=== PATIENT | male | born 1985 | race African-American/Black ===

== ENCOUNTER 2025-01-19 04:21 | Emergency (ER) | payer OTHER, SELFPAY ==
[2025-01-19] VITALS (34 sets, daily range): BP systolic 125–204; BP diastolic 59–107; PULSE 93–116; RESP 23–51; TEMP 37.2–37.9; O2SAT 87–100; BMI 60.9
--- NOTE | 2025-01-19 04:26 | ED.SOB ---
HPI - SOB/Dyspnea <Joaquim Collins, DO - Last Filed: 01/19/25 17:42> General Chief Complaint: Shortness of Breath/Dyspnea Stated Complaint: sob Time Seen by Provider: 01/19/25 04:23 History of Present Illness HPI Narrative: 39-year-old morbidly obese male with a past medical history significant for sarcoidosis, pneumonia previously intubated at [facility] in August 2024 , asthma, htn, chronic hypoxemic respiratory failure, was at [facility] for rehab when he started to have shortness of breath, dyspnea on exertion, and dry cough this evening brought in via EMS this evening. He denies rash, fever, chills, bodyaches, sore throat, chest pain, back pain, abdomina pain, nausea, vomiting, diarrhea, constipation. Other than what is stated 14 point review of system is negative. Related Data Allergies Allergy/AdvReac Type Severity Reaction Status Date / Time No Known Drug Allergies Allergy Verified 01/19/25 04:41 Review of Systems <Joaquim Collins, DO - Last Filed: 01/19/25 17:42> Review of Systems ROS Unobtainable: All systems reviewed & are unremarkable except as noted in HPI and below Exam <Joaquim Collins, DO - Last Filed: 01/19/25 17:42> Narrative Exam Narrative: GENERAL: [39] year old patient appears stated age. Well-developed patient, in mild distress. HEAD: Atraumatic. Normocephalic. EYES: Pupils equal round and reactive. Extraocular motions intact. No scleral icterus. No injection or drainage. ENT: Nose without bleeding, purulent drainage. Throat without erythema, tonsillar hypertrophy or exudate. Airway patent. NECK: Trachea midline. Non tender CARDIOVASCULAR: Tachycardic Regular rate and rhythm without murmurs, gallops, or rubs. RESPIRATORY: Decreased breath sounds bilateral GASTROINTESTINAL: Abdomen soft, non-tender, nondistended. EXTREMITIES: No edema or joint tenderness. BACK: Nontender without deformity or crepitance. No flank tenderness. NEURO: AOx3. SKIN: No rash or erythema of visible areas Initial Vital Signs Initial Vital Signs: Vital Signs Temperature 100.3 F H 01/19/25 04:48 Pulse Rate 113 H 01/19/25 04:48 Respiratory Rate 36 H 01/19/25 04:48 Blood Pressure 125/59 L 01/19/25 04:48 Pulse Oximetry 87 L 01/19/25 04:48 Oxygen Delivery Method Nasal Cannula 01/19/25 04:48 Oxygen Flow Rate 3 01/19/25 04:48 <Camilla Blackmon, DO - Last Filed: 01/19/25 18:33> Initial Vital Signs Initial Vital Signs: Vital Signs Temperature 100.3 F H 01/19/25 04:48 Pulse Rate 113 H 01/19/25 04:48 Respiratory Rate 36 H 01/19/25 04:48 Blood Pressure 125/59 L 01/19/25 04:48 Pulse Oximetry 87 L 01/19/25 04:48 Oxygen Delivery Method Nasal Cannula 01/19/25 04:48 Oxygen Flow Rate 3 01/19/25 04:48 Course <Joaquim Collins, DO - Last Filed: 01/19/25 17:42> Orders Ordered: Discontinued Medications Acetaminophen (Acetaminophen 325 Mg Tablet) 975 mg PO NOW ONE Stop: 01/19/25 04:38 Last Admin: 01/19/25 06:26 Dose: 975 mg Documented By: AB Albuterol/Ipratropium (Albuterol/Ipratropium 3 Ml Ampul) 3 ml INH NOW ONE Stop: 01/19/25 04:29 Last Admin: 01/19/25 05:08 Dose: 3 ml Documented By: JACOBY Albuterol/Ipratropium (Albuterol/Ipratropium 3 Ml Ampul) 3 ml INH NOW ONE Stop: 01/19/25 04:36 Last Admin: 01/19/25 05:17 Dose: 3 ml Documented By: JACOBY Albuterol/Ipratropium (Albuterol/Ipratropium 3 Ml Ampul) 3 ml INH RTQ4HR PRN PRN Reason: Shortness Of Breath Ceftriaxone Sodium 2,000 mg/ (Sodium Chloride) 100 mls @ 200 mls/hr IV NOW ONE Stop: 01/19/25 04:36 Last Infusion: 01/19/25 08:25 Dose: Infused Documented By: Admin: 01/19/25 07:46 Dose: 200 mls/hr Documented By: JOSE Lactated Ringer's (Lactated Ringers) 1,000 mls @ 1,000 mls/hr IV BOLUS ONE Stop: 01/19/25 05:34 Last Infusion: 01/19/25 08:03 Dose: Infused Documented By: Admin: 01/19/25 06:28 Dose: 1,000 mls/hr Documented By: AB Azithromycin 500 mg/ Dextrose 250 mls @ 250 mls/hr IV NOW ONE Stop: 01/19/25 05:17 Last Infusion: 01/19/25 07:50 Dose: Infused Documented By: Admin: 01/19/25 06:47 Dose: 250 mls/hr Documented By: THUAN Sodium Chloride (Normal Saline 0.9%) 1,000 mls @ 150 mls/hr IV CONT SOUTH Last Admin: 01/19/25 08:03 Dose: 150 mls/hr Documented By: MARLENY Lidocaine HCl (Lidocaine Jelly 2% 5 Ml) 1 applic TOP NOW ONE Stop: 01/19/25 09:55 Last Admin: 01/19/25 09:56 Dose: Not Given Documented By: JAI Lidocaine HCl (Lidocaine 2% (Glydo) 6 Ml Gel) 6 ml TOP NOW ONE Stop: 01/19/25 09:56 Last Admin: 01/19/25 10:03 Dose: 6 ml Documented By: JAI Methylprednisolone (Methylprednisolone Succ 125 Mg/2 Ml Vial) 125 mg IV NOW ONE Stop: 01/19/25 04:30 Last Admin: 01/19/25 05:10 Dose: Not Given Documented By: THUAN Methylprednisolone (Methylprednisolone Succ 125 Mg/2 Ml Vial) 125 mg IM NOW ONE Stop: 01/19/25 05:08 Last Admin: 01/19/25 05:10 Dose: 125 mg Documented By: THUAN Ondansetron HCl (Ondansetron 4 Mg/2 Ml Inj) 4 mg IV NOW PRN PRN Reason: Nausea And Vomiting Ondansetron HCl (Ondansetron 4 Mg Odt) 4 mg PO NOW PRN PRN Reason: Nausea And Vomiting Vital Signs Vital signs: Vital Signs - 8 hr 01/19/25 11:00 01/19/25 11:01 01/19/25 11:01 Pulse Rate 108 H 108 H Respiratory Rate 28 H 34 H Blood Pressure 204/99 H Pulse Oximetry 97 99 01/19/25 11:04 01/19/25 11:04 01/19/25 11:10 Pulse Rate 102 H Respiratory Rate 32 H Blood Pressure 201/104 H 169/91 H Pulse Oximetry 97 01/19/25 11:10 01/19/25 11:20 01/19/25 11:20 Pulse Rate 97 H 105 H Respiratory Rate 26 H 24 Blood Pressure 138/89 Pulse Oximetry 97 99 01/19/25 11:30 01/19/25 11:30 01/19/25 11:40 Pulse Rate 98 H Respiratory Rate 28 H Blood Pressure 145/81 H 161/78 H Pulse Oximetry 98 01/19/25 11:40 01/19/25 11:51 01/19/25 11:51 Pulse Rate 95 H 99 H Respiratory Rate 25 H 25 H Blood Pressure 185/74 H Pulse Oximetry 98 98 01/19/25 12:00 01/19/25 12:00 01/19/25 12:11 Pulse Rate 97 H Respiratory Rate 25 H Blood Pressure 161/71 H 163/107 H Pulse Oximetry 98 01/19/25 12:11 01/19/25 12:20 01/19/25 12:20 Pulse Rate 103 H 93 H Respiratory Rate 25 H 23 Blood Pressure 153/100 H Pulse Oximetry 98 97 01/19/25 12:30 01/19/25 12:30 Pulse Rate 95 H Respiratory Rate 27 H Blood Pressure 159/80 H Pulse Oximetry 97 <Camilla Blackmon, - Last Filed: 01/19/25 18:33> Orders Ordered: Discontinued Medications Acetaminophen (Acetaminophen 325 Mg Tablet) 975 mg PO NOW ONE Stop: 01/19/25 04:38 Last Admin: 01/19/25 06:26 Dose: 975 mg Documented By: AB Albuterol/Ipratropium (Albuterol/Ipratropium 3 Ml Ampul) 3 ml INH NOW ONE Stop: 01/19/25 04:29 Last Admin: 01/19/25 05:08 Dose: 3 ml Documented By: BLF Albuterol/Ipratropium (Albuterol/Ipratropium 3 Ml Ampul) 3 ml INH NOW ONE Stop: 01/19/25 04:36 Last Admin: 01/19/25 05:17 Dose: 3 ml Documented By: BLF Albuterol/Ipratropium (Albuterol/Ipratropium 3 Ml Ampul) 3 ml INH RTQ4HR PRN PRN Reason: Shortness Of Breath Ceftriaxone Sodium 2,000 mg/ (Sodium Chloride) 100 mls @ 200 mls/hr IV NOW ONE Stop: 01/19/25 04:36 Last Infusion: 01/19/25 08:25 Dose: Infused Documented By: Admin: 01/19/25 07:46 Dose: 200 mls/hr Documented By: JOSE Lactated Ringer's (Lactated Ringers) 1,000 mls @ 1,000 mls/hr IV BOLUS ONE Stop: 01/19/25 05:34 Last Infusion: 01/19/25 08:03 Dose: Infused Documented By: SGDwain Admin: 01/19/25 06:28 Dose: 1,000 mls/hr Documented By: Azithromycin 500 mg/ Dextrose 250 mls @ 250 mls/hr IV NOW ONE Stop: 01/19/25 05:17 Last Infusion: 01/19/25 07:50 Dose: Infused Documented By: Admin: 01/19/25 06:47 Dose: 250 mls/hr Documented By: THUAN Sodium Chloride (Normal Saline 0.9%) 1,000 mls @ 150 mls/hr IV CONT SOUTH Last Admin: 01/19/25 08:03 Dose: 150 mls/hr Documented By: MARLENY Lidocaine HCl (Lidocaine Jelly 2% 5 Ml) 1 applic TOP NOW ONE Stop: 01/19/25 09:55 Last Admin: 01/19/25 09:56 Dose: Not Given Documented By: JAI Lidocaine HCl (Lidocaine 2% (Glydo) 6 Ml Gel) 6 ml TOP NOW ONE Stop: 01/19/25 09:56 Last Admin: 01/19/25 10:03 Dose: 6 ml Documented By: JAI Methylprednisolone (Methylprednisolone Succ 125 Mg/2 Ml Vial) 125 mg IV NOW ONE Stop: 01/19/25 04:30 Last Admin: 01/19/25 05:10 Dose: Not Given Documented By: THUAN Methylprednisolone (Methylprednisolone Succ 125 Mg/2 Ml Vial) 125 mg IM NOW ONE Stop: 01/19/25 05:08 Last Admin: 01/19/25 05:10 Dose: 125 mg Documented By: THUAN Ondansetron HCl (Ondansetron 4 Mg/2 Ml Inj) 4 mg IV NOW PRN PRN Reason: Nausea And Vomiting Ondansetron HCl (Ondansetron 4 Mg Odt) 4 mg PO NOW PRN PRN Reason: Nausea And Vomiting Vital Signs Vital signs: Vital Signs - 8 hr 01/19/25 11:00 01/19/25 11:01 01/19/25 11:01 Pulse Rate 108 H 108 H Respiratory Rate 28 H 34 H Blood Pressure 204/99 H Pulse Oximetry 97 99 01/19/25 11:04 01/19/25 11:04 01/19/25 11:10 Pulse Rate 102 H Respiratory Rate 32 H Blood Pressure 201/104 H 169/91 H Pulse Oximetry 97 01/19/25 11:10 01/19/25 11:20 01/19/25 11:20 Pulse Rate 97 H 105 H Respiratory Rate 26 H 24 Blood Pressure 138/89 Pulse Oximetry 97 99 01/19/25 11:30 01/19/25 11:30 01/19/25 11:40 Pulse Rate 98 H Respiratory Rate 28 H Blood Pressure 145/81 H 161/78 H Pulse Oximetry 98 01/19/25 11:40 01/19/25 11:51 01/19/25 11:51 Pulse Rate 95 H 99 H Respiratory Rate 25 H 25 H Blood Pressure 185/74 H Pulse Oximetry 98 98 01/19/25 12:00 01/19/25 12:00 01/19/25 12:11 Pulse Rate 97 H Respiratory Rate 25 H Blood Pressure 161/71 H 163/107 H Pulse Oximetry 98 01/19/25 12:11 01/19/25 12:20 01/19/25 12:20 Pulse Rate 103 H 93 H Respiratory Rate 25 H 23 Blood Pressure 153/100 H Pulse Oximetry 98 97 01/19/25 12:30 01/19/25 12:30 Pulse Rate 95 H Respiratory Rate 27 H Blood Pressure 159/80 H Pulse Oximetry 97 MDM - SOB/Dyspnea <Joaquim Collins, DO - Last Filed: 01/19/25 17:42> Lab Data 01/19/25 06:08 01/19/25 06:08 Labs: Lab Results 01/19/25 01/19/25 01/19/25 Range/Units 06:03 06:06 06:08 WBC 13.7 H (4.5-11.0) X10^3/uL RBC 4.26 L (4.5-5.9) X10^6/uL Hgb 11.2 L (13.5-17.5) g/dL Hct 33.5 L (41-53) % MCV 78.8 L (80-100) fL MCH 26.2 (26-34) PG MCHC 33.3 (30-36) % RDW 17.0 H (11.6-14.8) % Plt Count 274 (150-400) X10^3/uL Neut % (Auto) 82.9 H (50-75) % Lymph % (Auto) 8.2 L (25-40) % [place] % (Auto) 5.8 (3-14) % Eos % (Auto) 2.1 (2-4) % Baso % (Auto) 1.0 (0-2) % Neut # (Auto) 26362 H (7695-8667) /uL Lymph # (Auto) 1100 (3281-2194) /uL [place] # (Auto) 800 (0-900) /uL Eos # (Auto) 300 (0-450) /uL Baso # (Auto) 100 (0-100) /uL PT 14.4 H (9.4-12.5) SECONDS INR 1.3 (0.9-1.3) APTT 28 (25.1-36.5) SECONDS ABG Sample Site ABG pH (7.35-7.45) ABG pCO2 (35-45) mmHg ABG pO2 (80-100) mmHg ABG HCO3 (23-27) mmol/L ABG Total CO2 (23-27) mmol/L ABG O2 Saturation (95-100) % ABG Base Excess (-2-3) mmol/L Lv Test VBG pH (7.33-7.43) VBG pCO2 (45-50) mmHg VBG pO2 (35-45) mmHg VBG HCO3 (24-28) mmol/L VBG Total CO2 (24-29) mmol/L VBG O2 Saturation (70-75) % VBG Base Excess (0-4) mmol/L FiO2 % 70.0 % % Sodium 136 L (137-145) mmol/L Potassium 3.8 (3.4-5.1) mmol/L Chloride 98 (98-107) mmol/L Carbon Dioxide 30 (22-32) mmol/L BUN 13 (9-20) mg/dL Creatinine 1.04 (0.66-1.25) mg/dL Estimated GFR > 60 (>60) mL/min BUN/Creatinine Ratio 12.5 (6-22) Glucose 120 H (70-99) mg/dL Lactate 0.8 (0.7-2.1) mmol/L Calcium 8.9 (8.4-10.2) mg/dL Total Bilirubin 1.8 H (0.2-1.3) mg/dL AST 55 (17-59) IU/L ALT 88 H (<50) IU/L Alkaline Phosphatase 319 H (38-126) U/L Total Creatine Kinase 110 (55-170) U/L Troponin I < 0.012 (0.01-0.034) ng/mL NT-Pro-B Natriuret Pep 80 (<125) pg/mL Total Protein 7.1 (6.3-8.2) g/dL Albumin 3.8 (3.5-5.0) g/dL Globulin 3.3 (1.7-4.1) g/dL Albumin/Globulin Ratio 1.2 (1.0-2.8) Lipase 67 (23-300) U/L Procalcitonin 0.285 (<0.5) ng/mL SARS-CoV-2 (PCR) (Negative) Influenza A (RT-PCR) (NEGATIVE) Influenza B (RT-PCR) (NEGATIVE) RSV (PCR) (Negative) 01/19/25 01/19/25 01/19/25 Range/Units 06:13 06:36 09:29 WBC (4.5-11.0) X10^3/uL RBC (4.5-5.9) X10^6/uL Hgb (13.5-17.5) g/dL Hct (41-53) % MCV (80-100) fL MCH (26-34) PG MCHC (30-36) % RDW (11.6-14.8) % Plt Count (150-400) X10^3/uL Neut % (Auto) (50-75) % Lymph % (Auto) (25-40) % [place] % (Auto) (3-14) % Eos % (Auto) (2-4) % Baso % (Auto) (0-2) % Neut # (Auto) (0114-5175) /uL Lymph # (Auto) (6838-7704) /uL [place] # (Auto) (0-900) /uL Eos # (Auto) (0-450) /uL Baso # (Auto) (0-100) /uL PT (9.4-12.5) SECONDS INR (0.9-1.3) APTT (25.1-36.5) SECONDS ABG Sample Site Left radial ABG pH 7.33 L (7.35-7.45) ABG pCO2 66.8 H* (35-45) mmHg ABG pO2 128 H (80-100) mmHg ABG HCO3 35 H (23-27) mmol/L ABG Total CO2 34 H (23-27) mmol/L ABG O2 Saturation 99 (95-100) % ABG Base Excess 6.6 H (-2-3) mmol/L Lv Test Positive VBG pH 7.47 H (7.33-7.43) VBG pCO2 47.0 (45-50) mmHg VBG pO2 39 (35-45) mmHg VBG HCO3 34 H (24-28) mmol/L VBG Total CO2 32 H (24-29) mmol/L VBG O2 Saturation 76 H (70-75) % VBG Base Excess 9.1 H (0-4) mmol/L FiO2 % 70.0 % % Sodium (137-145) mmol/L Potassium (3.4-5.1) mmol/L Chloride (98-107) mmol/L Carbon Dioxide (22-32) mmol/L BUN (9-20) mg/dL Creatinine (0.66-1.25) mg/dL Estimated GFR (>60) mL/min BUN/Creatinine Ratio (6-22) Glucose (70-99) mg/dL Lactate (0.7-2.1) mmol/L Calcium (8.4-10.2) mg/dL Total Bilirubin (0.2-1.3) mg/dL AST (17-59) IU/L ALT (<50) IU/L Alkaline Phosphatase (38-126) U/L Total Creatine Kinase (55-170) U/L Troponin I (0.01-0.034) ng/mL NT-Pro-B Natriuret Pep (<125) pg/mL Total Protein (6.3-8.2) g/dL Albumin (3.5-5.0) g/dL Globulin (1.7-4.1) g/dL Albumin/Globulin Ratio (1.0-2.8) Lipase (23-300) U/L Procalcitonin (<0.5) ng/mL SARS-CoV-2 (PCR) Negative (Negative) Influenza A (RT-PCR) Flu a negative (NEGATIVE) Influenza B (RT-PCR) Flu b negative (NEGATIVE) RSV (PCR) Negative (Negative) Urine Dip Bedside Urine Glucose Negative Bedside Urine Bilirubin - Negative Bedside Urine Ketone - Negative Urine Specific [place] 1.015 Bedside Urine Occult Blood - Negative Bedside Urine pH 6.0 Bedside Urine Protein - Negative Bedside Urine Urobilinogen - Negative Bedside Urine Nitrite - Negative Bedside Urine Leukocytes - Negative Esterase Imaging Data Chest x-ray: Radiologist's Impression: Multifocal bilateral pulmonary infiltrates. Adequately positioned right central venous catheter. WBC 13.7 hemoglobin 11.2 INR 1.3 VBG 7.47 pCO2 47 CO2 39 bicarb 34 base excess 9.1 sodium 136 potassium 3.8 chloride 98 CO2 30 BUN 13 creatinine 1.04 glucose 120 lactic acid 0.8 T bili 1.8 ALT 80 alk-phos 319 procalcitonin 0.285 lipase 67 ECG Data Interpretation: Sinus Tach HR 115 ID 144 QRS [address]-t wave change No previous EKG to compare MDM Narrative Medical decision making narrative: All lab work, vital signs, nurse triage note, medication list, previous ER visits, and all imaging studies reviewed. Chest x-ray showed multifocal bilateral pulmonary infiltrates. Patient given fluids Tylenol, Rocephin and Zithromax. Labwork is pending. On heated highflow 70/50 <Camilla Blackmon, DO - Last Filed: 01/19/25 18:33> Lab Data Labs: Lab Results 01/19/25 01/19/25 01/19/25 Range/Units 06:03 06:06 06:08 WBC 13.7 H (4.5-11.0) X10^3/uL RBC 4.26 L (4.5-5.9) X10^6/uL Hgb 11.2 L (13.5-17.5) g/dL Hct 33.5 L (41-53) % MCV 78.8 L (80-100) fL MCH 26.2 (26-34) PG MCHC 33.3 (30-36) % RDW 17.0 H (11.6-14.8) % Plt Count 274 (150-400) X10^3/uL Neut % (Auto) 82.9 H (50-75) % Lymph % (Auto) 8.2 L (25-40) % [place] % (Auto) 5.8 (3-14) % Eos % (Auto) 2.1 (2-4) % Baso % (Auto) 1.0 (0-2) % Neut # (Auto) 84935 H (7262-0004) /uL Lymph # (Auto) 1100 (9955-1782) /uL [place] # (Auto) 800 (0-900) /uL Eos # (Auto) 300 (0-450) /uL Baso # (Auto) 100 (0-100) /uL PT 14.4 H (9.4-12.5) SECONDS INR 1.3 (0.9-1.3) APTT 28 (25.1-36.5) SECONDS ABG Sample Site ABG pH (7.35-7.45) ABG pCO2 (35-45) mmHg ABG pO2 (80-100) mmHg ABG HCO3 (23-27) mmol/L ABG Total CO2 (23-27) mmol/L ABG O2 Saturation (95-100) % ABG Base Excess (-2-3) mmol/L Lv Test VBG pH (7.33-7.43) VBG pCO2 (45-50) mmHg VBG pO2 (35-45) mmHg VBG HCO3 (24-28) mmol/L VBG Total CO2 (24-29) mmol/L VBG O2 Saturation (70-75) % VBG Base Excess (0-4) mmol/L FiO2 % 70.0 % % Sodium 136 L (137-145) mmol/L Potassium 3.8 (3.4-5.1) mmol/L Chloride 98 (98-107) mmol/L Carbon Dioxide 30 (22-32) mmol/L BUN 13 (9-20) mg/dL Creatinine 1.04 (0.66-1.25) mg/dL Estimated GFR > 60 (>60) mL/min BUN/Creatinine Ratio 12.5 (6-22) Glucose 120 H (70-99) mg/dL Lactate 0.8 (0.7-2.1) mmol/L Calcium 8.9 (8.4-10.2) mg/dL Total Bilirubin 1.8 H (0.2-1.3) mg/dL AST 55 (17-59) IU/L ALT 88 H (<50) IU/L Alkaline Phosphatase 319 H (38-126) U/L Total Creatine Kinase 110 (55-170) U/L Troponin I < 0.012 (0.01-0.034) ng/mL NT-Pro-B Natriuret Pep 80 (<125) pg/mL Total Protein 7.1 (6.3-8.2) g/dL Albumin 3.8 (3.5-5.0) g/dL Globulin 3.3 (1.7-4.1) g/dL Albumin/Globulin Ratio 1.2 (1.0-2.8) Lipase 67 (23-300) U/L Procalcitonin 0.285 (<0.5) ng/mL SARS-CoV-2 (PCR) (Negative) Influenza A (RT-PCR) (NEGATIVE) Influenza B (RT-PCR) (NEGATIVE) RSV (PCR) (Negative) 01/19/25 01/19/25 01/19/25 Range/Units 06:13 06:36 09:29 WBC (4.5-11.0) X10^3/uL RBC (4.5-5.9) X10^6/uL Hgb (13.5-17.5) g/dL Hct (41-53) % MCV (80-100) fL MCH (26-34) PG MCHC (30-36) % RDW (11.6-14.8) % Plt Count (150-400) X10^3/uL Neut % (Auto) (50-75) % Lymph % (Auto) (25-40) % [place] % (Auto) (3-14) % Eos % (Auto) (2-4) % Baso % (Auto) (0-2) % Neut # (Auto) (1384-7986) /uL Lymph # (Auto) (7104-0605) /uL [place] # (Auto) (0-900) /uL Eos # (Auto) (0-450) /uL Baso # (Auto) (0-100) /uL PT (9.4-12.5) SECONDS INR (0.9-1.3) APTT (25.1-36.5) SECONDS ABG Sample Site Left radial ABG pH 7.33 L (7.35-7.45) ABG pCO2 66.8 H* (35-45) mmHg ABG pO2 128 H (80-100) mmHg ABG HCO3 35 H (23-27) mmol/L ABG Total CO2 34 H (23-27) mmol/L ABG O2 Saturation 99 (95-100) % ABG Base Excess 6.6 H (-2-3) mmol/L Lv Test Positive VBG pH 7.47 H (7.33-7.43) VBG pCO2 47.0 (45-50) mmHg VBG pO2 39 (35-45) mmHg VBG HCO3 34 H (24-28) mmol/L VBG Total CO2 32 H (24-29) mmol/L VBG O2 Saturation 76 H (70-75) % VBG Base Excess 9.1 H (0-4) mmol/L FiO2 % 70.0 % % Sodium (137-145) mmol/L Potassium (3.4-5.1) mmol/L Chloride (98-107) mmol/L Carbon Dioxide (22-32) mmol/L BUN (9-20) mg/dL Creatinine (0.66-1.25) mg/dL Estimated GFR (>60) mL/min BUN/Creatinine Ratio (6-22) Glucose (70-99) mg/dL Lactate (0.7-2.1) mmol/L Calcium (8.4-10.2) mg/dL Total Bilirubin (0.2-1.3) mg/dL AST (17-59) IU/L ALT (<50) IU/L Alkaline Phosphatase (38-126) U/L Total Creatine Kinase (55-170) U/L Troponin I (0.01-0.034) ng/mL NT-Pro-B Natriuret Pep (<125) pg/mL Total Protein (6.3-8.2) g/dL Albumin (3.5-5.0) g/dL Globulin (1.7-4.1) g/dL Albumin/Globulin Ratio (1.0-2.8) Lipase (23-300) U/L Procalcitonin (<0.5) ng/mL SARS-CoV-2 (PCR) Negative (Negative) Influenza A (RT-PCR) Flu a negative (NEGATIVE) Influenza B (RT-PCR) Flu b negative (NEGATIVE) RSV (PCR) Negative (Negative) Urine Dip Bedside Urine Glucose Negative Bedside Urine Bilirubin - Negative Bedside Urine Ketone - Negative Urine Specific [place] 1.015 Bedside Urine Occult Blood - Negative Bedside Urine pH 6.0 Bedside Urine Protein - Negative Bedside Urine Urobilinogen - Negative Bedside Urine Nitrite - Negative Bedside Urine Leukocytes - Negative Esterase MDM Narrative Medical decision making narrative: All lab work, vital signs, nurse triage note, medication list, previous ER visits, and all imaging studies reviewed. Chest x-ray showed multifocal bilateral pulmonary infiltrates. Patient given fluids Tylenol, Rocephin and Zithromax. Labwork is pending. On heated highflow 70/50. 01/19/25 Dr. Blackmon: Patient signed out to myself by Dr. Collins. Patient is seen and evaluated by myself. Currently on high-flow 70/50 patient states his breathing feels improved at this time. He is still little tachypneic speaks in 4-5 words, decreased breath sounds bilaterally. Tachycardic. Notes he has had pneumonia in the past and has been at [facility] as he is requiring oxygen. Patient states has a history of sarcoid, asthma is on multiple inhalers. He states he has been intubated once before. CTA was ordered by overnight physician but to 2nd patient's weight and habitus was not able to be performed. Troponin and bnp were added on. Workup shows white count is 13 hemoglobin of 11 platelets are 274. Predominance of neutrophils CMP shows sodium 136 glucose of 120 BUN and creatinine are appropriate total bilirubin is 1.8 AST is 55 and ALT 88 alk-phos of 319 lipase is 67 procalcitonin is 0.285. Lactate is 0.8 COVID/influenza/RSV Patient has not VBG 7.47, pCO2 47, PO2 of 39 with a bicarb of 34. Patient has so to live placed by General surgery, x-ray shows multifocal pneumonia bilateral infiltrates adequately positioned rate central catheter. No pneumothorax, pleural effusion or congestive changes cardiac silhouette is normal. Patient received Solu-Medrol, fluids, acetaminophen, DuoNeb and azithromycin as well as Rocephin. Spoke with hospitalist Dr. Massey, due to patient's habitus patient will need multidisciplinary care that we do not have available at our facility plan for transfer. Spoke with Dr. Sanford, Ile[facility]ano @ [phone]. I reviewed patient they agree with some DVT prophylaxis with subQ heparin reviewed all findings. They do ask for circumference for the patient's before acceptance so if patient needed CT they can know if he would fit if his some conferences to large they would defer transfer. Patient circumference appropriate for facility and [facility]ude [facility]ano accepts with ALS transfer. Critical Care Time <Joaquim Collins, DO - Last Filed: 01/19/25 17:42> Critical Care Time Total Critical Care Time: 0 <Camilla Blackmon, DO - Last Filed: 01/19/25 18:33> Critical Care Time Critical Care Time: Yes Total Critical Care Time: 45 Attestation: The high probability of a clinically significant, sudden or life threatening deterioration of the cardiac/pulmonary system(s) required my full and direct attention, intervention and personal management. The aggregate critical care time was [--] minutes. This time is in addition to time spent performing reported procedures but includes the following: [x] Data Review and interpretation [x] Patient assessment and monitoring of vital signs [x] Documentation [x] Medication orders and management Discharge Plan Departure Patient Disposition: [facility] Clinical Impression: Multifocal pneumonia, Acute hypoxemic respiratory failure Stand Alone Forms: School Release Note
--- NOTE | 2025-01-19 04:30 | EKG_ITS ---
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
--- NOTE | 2025-01-19 04:35 | DI.RAD.S_ITS ---
PROCEDURE: XR CHEST 1V INDICATIONS: suspected sepsis TECHNIQUE: One view of the chest was acquired. COMPARISON: None. FINDINGS: Surgical changes and devices: None. Lungs and pleura: Patchy bilateral pulmonary infiltrates Mediastinum: Mediastinal contours appear normal. Heart size is normal. Bones and chest wall: No suspicious bony lesions. Overlying soft tissues appear unremarkable. IMPRESSION: Multifocal bilateral pneumonia Note: This final report is concordant with the preliminary after-hours interpretation provided by [facility] Approved by: Rios Guillen M.D. on 01/19/2025 at 8:37
[2025-01-19] MEDS: ALBUTEROL/IPRATROPIUM 3 ML AMPUL INH ×2 (05:08→05:17)
[2025-01-19] MEDS: methylPREDNISolone succ 125 MG/2 ML VIAL IM (05:10)
--- NOTE | 2025-01-19 05:50 | DI.RAD.S_ITS ---
PROCEDURE: XR CHEST 1V INDICATIONS: central line placement TECHNIQUE: One view of the chest was acquired. COMPARISON: [facility], CR, XR CHEST 1V, 01/19/2025, 4:40. FINDINGS: Surgical changes and devices: Right IJ central venous line tip at the IJ/SVC junction. Lungs and pleura: Patchy bilateral pulmonary infiltrates Mediastinum: Mediastinal contours appear normal. Heart size is enlarged but accentuated by low lung volumes. Bones and chest wall: No suspicious bony lesions. Overlying soft tissues appear unremarkable. IMPRESSION: Right IJ central venous line tip at the IJ/SVC junction. No pneumothorax Stable bilateral patchy pulmonary infiltrates Note: This final report is concordant with the preliminary after-hours interpretation provided by [facility], [facility] Approved by: Rios Guillen M.D. on 01/19/2025 at 8:53
--- NOTE | 2025-01-19 06:05 | PM.HP.IH.1 ---
History of Present Illness History of Present Illness Date Patient Seen: 01/19/25 Time Patient Seen: 05:30 Date of Onset of Symptoms: 01/18/25 Chief complaint: sob Narrative: Patient is a 39-year-old male presents to the emergency room with a stream shortness of breath dyspnea history of asthma and respiratory failure. Patient is morbidly obese. Patient's laboratory are pending he states he is not on any blood thinners. They need emergency IV access as he has none at this time. Allergies: NKDA Medications: Multiple inhalers, omeprazole, Zithromax, prednisone, nifedipine, Bactrim DS, Zofran, metoprolol, Lasix, sertraline, Tylenol, Past medical history: Anxiety, depression, asthma, history of multiple pneumonias with history of intubation, and fatty liver with chronically elevated LFTs, morbidly obese, sarcoidosis, history of previous respiratory failures with intubation, the patient denies any other heart lungs digestive musculoskeletal neurological seizure disorder psychiatric problems risks are Infectious diseases HIV or AIDS. Past surgical history: History of bronchoscopy and mediastinoscopy Social history: Unemployed, history of tobacco abuse less than 1/2 pack per day times 19 years. Two years ago, denies any alcohol in 1 year, ongoing marijuana Vitals: Temperature is 100.3? pulse is 106 respirations 28 BP is 125/59 SaO2 is 100% on 50 L. patient is 6 ft tall 462 lb Head is normocephalic eyes PERRLA EOMI is intact nares are clear oropharyngeal cavity moderate repair with some gum retraction oropharyngeal soft tissues are very dry heart regular rate and rhythm with tachycardia lungs diminished in the bases poor inspiratory and expiratory effort very tachypneic but unable to auscultate good breath sounds due to patient's size. Abdomen is morbidly obese good active bowel sounds no masses or peritoneal signs musculoskeletal patient is moving all extremities. Impression: Dyspnea shortness of breath with respiratory failure Super morbid obesity Lack of venous access Sarcoidosis Anxiety depression Plan: Discussed with patient the findings need for central venous access procedure risks and complications were fully explained including risk for cardiopulmonary depression infection bleeding possible pneumothorax he understands and consents we will place at bedside with ultrasound guidance all questions were answered to patient's satisfaction. Meds Home Medications and Allergies Allergies Allergy/AdvReac Type Severity Reaction Status Date / Time No Known Drug Allergies Allergy Verified 01/19/25 04:41 Exam Vital Signs (past 8 hours): - 01/19/25 04:48 01/19/25 05:10 01/19/25 05:18 Temperature 100.3 F H Pulse Rate 113 H 106 H 106 H Respiratory Rate 36 H 28 H 28 H Blood Pressure 125/59 L 125/59 L Pulse Oximetry 87 L 100 100 Oxygen Delivery Method Nasal Cannula High Flow Nasal Cannula High Flow Nasal Cannula Oxygen Flow Rate 3 50 50 Fraction of Inspired Oxygen 80 70 Fraction of Inspired Oxygen 70 SaO2/FiO2 Ratio 142 Oxygen Delivery Method High Flow Nasal Cannula Oxygen Flow Rate 50 Assessment & Plan Time-Based Coding :: [TOTAL MINUTES] spent with patient and on the chart (including review of chart, obtaining history, exam, reviewing outside data, placing orders, documenting exam and treatment plan, and counseling patient) on [DATE]. [employer] Switch[employer] Installer Document charge(s): Yes
--- NOTE | 2025-01-19 06:11 | PM.OP.1 ---
Operative Date/Time/Diagnoses Date of procedure: 01/19/25 Time of procedure: 05:30 Pre-op diagnosis: Dyspnea tachypnea short of breath with respiratory failure lack of venous access super morbid obesity Post-op diagnosis: same (Same) Procedure & Clinicians Procedure: Patient was seen in emergency consultation in the ER for central venous access patient has no venous access was this time discussed with patient the findings need for procedure risks and complications including cardiopulmonary depression infection bleeding possible pneumothorax patient understood and consented. Patient was placed in a slightly upright position due to his dyspnea ultrasound was performed shows a dilated lateral internal jugular vein but with respirations this collapse is almost completely.. The patient was prepped and draped in usual sterile fashion time-out was performed procedure patient's surgeon. The patient then had ultrasound probe was covered with a sterile probe cover an ultrasound of the internal jugular vein which was slightly laterally. Utilizing xylocaine 1% without epi anesthetize the skin needle was introduced into the vein under direct ultrasound visualization as withdrawn further injected with local. 14 gauge needle was then placed with syringe advanced into the vein good blood return was noted the syringe was removed care was taken to avoid any air emboli J-wire was advanced to the appropriate distance in the needle was removed no ectopy was noted. Patient then a small stab 1 placed at the wire insertion site 11. Knife blade dilators patient with a J-wire and rotating fashion this was then rule central venous triple-lumen catheter had been flushed with sterile normal saline was answered all of the gyri of the appropriate distance the J-wire was removed we hep-locked excellent blood return was noted on all port sites further flushed with sterile normal saline. This was then sutured in place with further xylocaine 1% without epi 2 0 silk sutures covered with a sterile Biopatch and Tegaderm. First and 2nd sponge instrument needle counts found to be correct patient tolerated procedure well without complication patient has returned back to nursing care stat portable chest x-ray was performed which shows excellent positioning of the superior vena cava no pneumothorax noted. May use central line. Same procedure(s) as scheduled: Yes (Right internal jugular central venous catheter with ultrasound guidance) Indications: Respiratory failure morbid obesity lack of venous access Surgeon: Valentín Lagos Assisted?: No Anesthesia Type: Local Operative Notes Findings: See dictated note Applied: other Estimated Blood Loss (mL): 0 Complications: none Post-operative Condition: stable Disposition: other Plan for aftercare: Ongoing workup in ER
[2025-01-19 06:17] LABS: Base Excess VBG 9.1 mmol/L (0-4); HCO3 VBG 34 mmol/L (24-28); Oxygen Saturation VBG 76 % (70-75); PCO2 VBG 47.0 mmHg (45-50); PO2 VBG 39 mmHg (35-45); Total CO2 VBG 32 mmol/L (24-29); pH VBG 7.47 (7.33-7.43)
[2025-01-19 06:25] LABS: Add Manual Diff / Slide Review NO; Hematocrit 33.5 % (41-53); Hemoglobin 11.2 g/dL (13.5-17.5); Lymphocytes Absolute Auto 1100 /uL (1100-4500); Mean Corpuscular HGB Conc 33.3 % (30-36); Mean Corpuscular Hemoglobin 26.2 PG (26-34); Mean Corpuscular Volume 78.8 fL (80-100); Platelet Count 274 X10^3/uL (150-400)
[2025-01-19] MEDS: ACETAMINOPHEN 325 MG TABLET 975 MG PO (06:26)
[2025-01-19] MEDS: LACTATED RINGERS 1,000 ML 1000 ML IV (06:28)
[2025-01-19 06:33] LABS: INR 1.3 (0.9-1.3); Prothrombin Time 14.4 SECONDS (9.4-12.5)
[2025-01-19 06:36] LABS: PTT Partial Thromboplastin Tim 28 SECONDS (25.1-36.5)
[2025-01-19 06:37] LABS: Alanine Aminotransferase 88 IU/L (<50); Albumin 3.8 g/dL (3.5-5.0); Albumin Globulin Ratio 1.2 (1.0-2.8); Alkaline Phosphatase 319 U/L (38-126); Blood Urea Nitrogen 13 mg/dL (9-20); Calcium 8.9 mg/dL (8.4-10.2); Carbon Dioxide 30 mmol/L (22-32); Chloride 98 mmol/L (98-107); Estimated Glomerular Filt Rate > 60 mL/min (>60); Globulin 3.3 g/dL (1.7-4.1); Glucose 120 mg/dL (70-99); HEMOLYSIS < 15 (0-50); Lactate (Lactic Acid) 0.8 mmol/L (0.7-2.1); Lipase 67 U/L (23-300); Potassium 3.8 mmol/L (3.4-5.1); Sodium 136 mmol/L (137-145); Total Protein 7.1 g/dL (6.3-8.2)
[2025-01-19] MEDS: AZITHROMYCIN 500 MG in DEXTROSE 5% IN WATER 250 ML 250 MG IV (06:47)
--- NOTE | 2025-01-19 06:53 | PC.NURSE ---
Right IJ placed for access by Dr. Lagos. This nurse assisted through process about 30 minutes. Provider secured with sutures. Pressure Injectable Three-Lumen CVC placed. 7 Fr 3 Lumen 20 cm catheter length 0.32 inch joseph spring-wire guide. Patient tolerated, blood obtained from line after provider completed. Using hub scrubs prior to use. 1st set of blood cultures and full rainbow obtained.
[2025-01-19 06:54] LABS: Procalcitonin 0.285 ng/mL (<0.5)
--- NOTE | 2025-01-19 06:56 | PC.NURSE ---
Waited at least 15 minutes between 1st set of blood cultures and 2nd using hub scrubs prior to blood draw. Waste of 10 ml blood prior to using blood for cultures.
--- NOTE | 2025-01-19 07:00 | PC.NURSE ---
Lift assist called to help with patient transfer from [facility] to CT scanner. CT scanner unable to operate after patient on bed. Provider notified. Returned to room #1
[2025-01-19 07:26] LABS: Influenza A - CEPHEID Flu A NEGATIVE (NEGATIVE); Influenza B - CEPHEID Flu B NEGATIVE (NEGATIVE)
[2025-01-19 07:27] LABS: COVID-19 CEPHEID 4-PLEX PCR Negative (Negative)
[2025-01-19 07:33] LABS: Creatine Kinase 110 U/L (55-170)
--- NOTE | 2025-01-19 07:37 | PC.NURSE ---
Patient given number to [place] to call himself for his personal belonging. Patient called his father on his own to give him an update.
[2025-01-19 07:46] LABS: NT-proBNP (BNP-Adult 18+) 80 pg/mL (<125); Troponin I < 0.012 ng/mL (0.01-0.034)
[2025-01-19] MEDS: cefTRIAXone 2,000 MG in SODIUM CHLORIDE 0.9% 100 ML 200 MG IV (07:46)
[2025-01-19] MEDS: SODIUM CHLORIDE 0.9% 1,000 ML 150 ML IV (08:03)
--- NOTE | 2025-01-19 09:22 | PC.NURSE ---
Patient diaphoretic. Temp 98.6 temporal scan. Patient in the room in and out of sleep. lung sounds clear on the right, diminished on the left. On heated high flow. Making urine frequently. States that he is feeling better.
--- NOTE | 2025-01-19 09:41 | PC.NURSE ---
patient measured using paper tape measure in two parts. part one: 39 from posterior deltoid to the opposite side marked position of tape on bed. part two: 27 from anterior surface of deltoid estimated at [place] of part one. Total circumference at the deltoids estimated to be 66.
[2025-01-19] MEDS: LIDOCAINE 2% (GLYDO) 6 ML GEL TOP (10:03)
[2025-01-19 10:39] LABS: Allen Test for ABG Passed? Positive; Blood Gas Collection Site Left Radial; HCO3 ABG 35 mmol/L (23-27); Oxygen Saturation ABG 99 % (95-100); PCO2 ABG 66.8 mmHg (35-45); PO2 ABG 128 mmHg (80-100); TCO2 ABG 34 mmol/L (23-27)
--- NOTE | 2025-01-19 12:28 | PC.NURSE ---
Pt wants to go to his SNF to gather his things so he can go down with his stuff. Mary from [facility] called back and stated that they are short staffed and they do not have anybody to gather his things. They stated that when the afternoon staff arrives maybe they can do it. The patient was updated. He stated that he wants to go get his stuff and it would only take a few minutes to get it. He was informed that he is not safe to leave the facility due to his condition. Provider updated. MD to speak with the patient.
== END 2025-01-19 13:25 | disposition short-term general hospital (02) ==
PROVIDERS: Family Medicine; Emergency Provider Emergency Medicine
DX: J18.8 Other pneumonia, unspecified organism (principal); J96.01 Acute respiratory failure with hypoxia; R00.0 Tachycardia, unspecified
CPT/HCPCS: 36415; 36600; 71045; 80053; 81003; 82550; 82805; 83605; 83690; 83880; 84145; 84484; 85025; 85610; 85730; 87040; 87637; 93005; 94640; 96365; 96367; 96372; 99285; 99291; J0696; J2919; J7030; J7050; J7060; J7120

== ENCOUNTER 2025-02-15 15:10 | Emergency (ER) | payer OTHER, SELFPAY ==
[2025-02-15] VITALS (26 sets, daily range): BP systolic 134–198; BP diastolic 66–99; PULSE 74–95; RESP 10–30; TEMP 36.8; O2SAT 94–99; BMI 68.5
--- NOTE | 2025-02-15 15:15 | DI.RAD.S_ITS ---
PROCEDURE: XR CHEST 1V INDICATIONS: dyspnea TECHNIQUE: One view of the chest was acquired. COMPARISON: [facility], CR, XR CHEST 1V, 01/19/2025, 5:43. FINDINGS: Surgical changes and devices: None. Lungs and pleura: Bilateral airspace, left greater than right opacities. No pleural effusion. No pneumothorax. Interstitial prominence in vascular crowding Mediastinum: Cardiomegaly. Bones and chest wall: No suspicious bony lesions. Overlying soft tissues appear unremarkable. IMPRESSION: Cardiomegaly with interstitial prominence is concerning for pulmonary edema. Airspace opacities may reflect infection in the correct clinical setting. Dictated by: Chacho Mcmullen M.D. on 02/15/2025 at 15:04 Approved by: Chacho Mcmullen M.D. on 02/15/2025 at 15:08
--- NOTE | 2025-02-15 15:18 | ED.CHESTPAIN ---
HPI - Chest Pain <Neal Kramer MD - Last Filed: 02/15/25 18:44> General Chief Complaint: Shortness of Breath/Dyspnea Stated Complaint: SOB Time Seen by Provider: 02/15/25 15:14 Source: patient Mode of arrival: EMS Limitations: no limitations History of Present Illness HPI narrative: 39-year-old male with morbid obesity coming from a local rehab center by ambulance for dyspnea. Reportedly has had progressive dyspnea over a week. Not having chest pain or fevers. Diuretic dose was doubled without resolution has bilateral lower extremity edema. On January 19 he was seen here with respiratory failure had multifocal pulmonary infiltrates required high-flow oxygen and a central line and was ultimately transferred to [facility] secondary to his obesity. D-dimer was elevated at that time however CT angiogram was not performed as the patient was too large for our table. Has a history of sarcoidosis, has required intubation in the past. It appears that his current dose of furosemide is 40 mg a day. He is also on prednisone 10 mg a day. Related Data Home Medications ?Medication ?Instructions ?Recorded ?Confirmed Dulera Inhalation Aerosol 2 inh inhalation BID 02/15/25 02/15/25 acetaminophen 325 mg capsule 650 mg PO Q4H PRN pain 02/15/25 02/15/25 azathioprine 50 mg tablet 50 mg PO DAILY 02/15/25 02/15/25 fluticasone 500 mcg-salmeterol 50 1 inh inhalation BID 02/15/25 02/15/25 mcg/dose blistr powdr for inhalation furosemide 40 mg tablet 40 mg PO DAILY 02/15/25 02/15/25 metoprolol tartrate 25 mg tablet 25 mg PO BID 02/15/25 02/15/25 nifedipine 30 mg tablet,extended 30 mg PO DAILY 02/15/25 02/15/25 release 24 hr pantoprazole 40 mg tablet,delayed 40 mg PO DAILY 02/15/25 02/15/25 release prednisone 10 mg tablet 20 mg PO DAILY 02/15/25 02/15/25 sertraline 100 mg tablet 200 mg PO DAILY 02/15/25 02/15/25 sulfamethoxazole 800 1 tab PO DAILY 02/15/25 02/15/25 mg-trimethoprim 160 mg tablet Allergies Allergy/AdvReac Type Severity Reaction Status Date / Time No Known Drug Allergies Allergy Verified 01/19/25 04:41 Patient History <Neal Kramer MD - Last Filed: 02/15/25 18:44> Medical History (Updated 02/15/25 @ 23:29 by Clifford Rodgers MD) Chronic kidney disease (CKD) stage G2/A2, mildly decreased glomerular filtration rate (GFR) between 60-89 mL/min/1.73 square meter and albuminuria creatinine ratio between 30-299 mg/g Asthma Morbid obesity with BMI of 60.0-69.9, adult Hypertension Sarcoidosis Social History Smoking Status: Never smoker Smoking Status: Never smoker Exam <Neal Kramer MD - Last Filed: 02/15/25 18:44> Narrative Exam Narrative: Morbidly obese and somnolent. No respiratory distress. On 4 L nasal cannula with good oxygen saturation Neck is supple I am unable to assess jugular venous distention. Patient refused to sit up for auscultation of the lungs posteriorly anteriorly lungs shows scattered rhonchi and scant wheezes Cardiac distant heart tones regular rhythm rate no murmur or gallop Abdomen is obese soft and nontender Pitting edema bilaterally. Sleeping, arouses to voice moving all 4 extremities spontaneously and equally Initial Vital Signs Initial Vital Signs: Vital Signs Temperature 98.2 F 02/15/25 15:11 Pulse Rate 91 H 02/15/25 15:11 Respiratory Rate 24 02/15/25 15:11 Blood Pressure 136/67 02/15/25 15:11 Pulse Oximetry 96 02/15/25 15:11 Oxygen Delivery Method Nasal Cannula 02/15/25 15:11 Oxygen Flow Rate 4 02/15/25 15:11 <Clifford Rodgers MD - Last Filed: 02/15/25 23:51> Initial Vital Signs Initial Vital Signs: Vital Signs Temperature 98.2 F 02/15/25 15:11 Pulse Rate 91 H 02/15/25 15:11 Respiratory Rate 24 02/15/25 15:11 Blood Pressure 136/67 02/15/25 15:11 Pulse Oximetry 96 02/15/25 15:11 Oxygen Delivery Method Nasal Cannula 02/15/25 15:11 Oxygen Flow Rate 4 02/15/25 15:11 Course <Neal Kramer MD - Last Filed: 02/15/25 18:44> Orders Ordered: ED Orders 02/15/25 15:14 BNP [NT-proBNP (BNP-Adult 18+)] Stat CBC Auto Diff [Complete Blood Count AUTO DIFF] Stat CMP [Comprehensive Metabolic Panel] Stat D Dimer Stat Procalcitonin Stat Trop I [Troponin I] Stat 02/15/25 15:15 CXR [XR chest 1V] Stat Venous Blood Gas STAT 02/15/25 15:16 EKG-12 Lead Stat 02/15/25 15:36 Venous Blood Gas Routine 02/15/25 17:37 Venous Blood Gas STAT 02/15/25 17:45 Venous Blood Gas Routine 02/15/25 18:00 High flow/High humidity nasal STAT 02/15/25 20:37 BiPAP Ventilatory Support RT PROTOCOL 02/15/25 21:15 Arterial Blood Gas STAT 02/15/25 22:58 Venous Blood Gas STAT 02/15/25 23:04 Venous Blood Gas Routine Discontinued Medications Furosemide (Furosemide 40 Mg/4 Ml Vial) 40 mg IV NOW ONE Stop: 02/15/25 20:38 Last Admin: 02/15/25 20:57 Dose: 40 mg Documented By: JENNIFER Furosemide (Furosemide 40 Mg/4 Ml Vial) 40 mg IV NOW ONE Stop: 02/15/25 20:43 Last Admin: 02/15/25 20:57 Dose: 40 mg Documented By: JENNIFER Vital Signs Vital signs: Vital Signs - 8 hr 02/15/25 16:00 02/15/25 16:00 02/15/25 16:30 Pulse Rate 86 Respiratory Rate 19 Blood Pressure 147/75 H 171/92 H Pulse Oximetry 96 Oxygen Delivery Method Oxygen Flow Rate Fraction of Inspired Oxygen 02/15/25 16:30 02/15/25 17:00 02/15/25 17:00 Pulse Rate 74 85 Respiratory Rate 20 19 Blood Pressure 198/90 H Pulse Oximetry 94 96 Oxygen Delivery Method Oxygen Flow Rate Fraction of Inspired Oxygen 02/15/25 17:30 02/15/25 17:31 02/15/25 17:31 Pulse Rate 87 85 Respiratory Rate 18 17 Blood Pressure 156/98 H Pulse Oximetry 98 97 Oxygen Delivery Method Oxygen Flow Rate Fraction of Inspired Oxygen 02/15/25 18:00 02/15/25 18:00 02/15/25 18:01 Pulse Rate 79 85 Respiratory Rate 23 22 Blood Pressure 166/99 H 156/98 H Pulse Oximetry 97 97 Oxygen Delivery Method Heated High Flow Oxygen Flow Rate 50 Fraction of Inspired Oxygen 35 02/15/25 18:30 02/15/25 18:30 02/15/25 19:00 Pulse Rate 83 Respiratory Rate 16 Blood Pressure 153/94 H 157/85 H Pulse Oximetry 96 Oxygen Delivery Method Oxygen Flow Rate Fraction of Inspired Oxygen 02/15/25 19:00 02/15/25 19:30 02/15/25 19:30 Pulse Rate 76 79 Respiratory Rate 21 23 Blood Pressure 138/66 Pulse Oximetry 97 97 Oxygen Delivery Method Oxygen Flow Rate Fraction of Inspired Oxygen 02/15/25 20:00 02/15/25 20:00 02/15/25 20:30 Pulse Rate 76 Respiratory Rate 23 Blood Pressure 143/72 H 153/84 H Pulse Oximetry 96 Oxygen Delivery Method Oxygen Flow Rate Fraction of Inspired Oxygen 02/15/25 20:30 02/15/25 20:49 02/15/25 21:00 Pulse Rate 80 83 Respiratory Rate 22 20 Blood Pressure 156/84 H Pulse Oximetry 98 98 Oxygen Delivery Method Oxygen Flow Rate Fraction of Inspired Oxygen 30 02/15/25 21:00 02/15/25 21:30 02/15/25 21:31 Pulse Rate 78 Respiratory Rate 22 Blood Pressure 161/82 H 142/92 H Pulse Oximetry 99 Oxygen Delivery Method Oxygen Flow Rate Fraction of Inspired Oxygen 02/15/25 21:31 02/15/25 22:00 02/15/25 22:00 Pulse Rate 79 82 Respiratory Rate 18 23 Blood Pressure 139/85 Pulse Oximetry 99 97 Oxygen Delivery Method Oxygen Flow Rate Fraction of Inspired Oxygen 02/15/25 22:29 02/15/25 22:30 Pulse Rate 88 Respiratory Rate 30 H Blood Pressure 150/95 H Pulse Oximetry 97 Oxygen Delivery Method BiPAP Oxygen Flow Rate Fraction of Inspired Oxygen <Clifford Rodgers MD - Last Filed: 02/15/25 23:51> Course Course Narrative: 20:30 Patient was signed out to me at the change of shift by Dr. Kramer with disposition pending. He was stable at that time and it was not until now that I have been able to investigate his case and interventions and make some decisions on his further management. This is a 39-year-old male patient with a history of severe morbid obesity with a BMI near 60. Sarcoidosis, hypertension, CHF, asthma and possible pulmonary hypertension. He comes in with worsening shortness of breath worsening over the last week with no cough, fever or chills. Denies chest pain. He had increased his furosemide but no improvement. Orders Ordered: ED Orders 02/15/25 15:14 BNP [NT-proBNP (BNP-Adult 18+)] Stat CBC Auto Diff [Complete Blood Count AUTO DIFF] Stat CMP [Comprehensive Metabolic Panel] Stat D Dimer Stat Procalcitonin Stat Trop I [Troponin I] Stat 02/15/25 15:15 CXR [XR chest 1V] Stat Venous Blood Gas STAT 02/15/25 15:16 EKG-12 Lead Stat 02/15/25 15:36 Venous Blood Gas Routine 02/15/25 17:37 Venous Blood Gas STAT 02/15/25 17:45 Venous Blood Gas Routine 02/15/25 18:00 High flow/High humidity nasal STAT 02/15/25 20:37 BiPAP Ventilatory Support RT PROTOCOL 02/15/25 21:15 Arterial Blood Gas STAT 02/15/25 22:58 Venous Blood Gas STAT 02/15/25 23:04 Venous Blood Gas Routine Discontinued Medications Furosemide (Furosemide 40 Mg/4 Ml Vial) 40 mg IV NOW ONE Stop: 02/15/25 20:38 Last Admin: 02/15/25 20:57 Dose: 40 mg Documented By: JENNIFER Furosemide (Furosemide 40 Mg/4 Ml Vial) 40 mg IV NOW ONE Stop: 02/15/25 20:43 Last Admin: 02/15/25 20:57 Dose: 40 mg Documented By: JENNIFER Vital Signs Vital signs: Vital Signs - 8 hr 02/15/25 16:00 02/15/25 16:00 02/15/25 16:30 Pulse Rate 86 Respiratory Rate 19 Blood Pressure 147/75 H 171/92 H Pulse Oximetry 96 Oxygen Delivery Method Oxygen Flow Rate Fraction of Inspired Oxygen 02/15/25 16:30 02/15/25 17:00 02/15/25 17:00 Pulse Rate 74 85 Respiratory Rate 20 19 Blood Pressure 198/90 H Pulse Oximetry 94 96 Oxygen Delivery Method Oxygen Flow Rate Fraction of Inspired Oxygen 02/15/25 17:30 02/15/25 17:31 02/15/25 17:31 Pulse Rate 87 85 Respiratory Rate 18 17 Blood Pressure 156/98 H Pulse Oximetry 98 97 Oxygen Delivery Method Oxygen Flow Rate Fraction of Inspired Oxygen 02/15/25 18:00 02/15/25 18:00 02/15/25 18:01 Pulse Rate 79 85 Respiratory Rate 23 22 Blood Pressure 166/99 H 156/98 H Pulse Oximetry 97 97 Oxygen Delivery Method Heated High Flow Oxygen Flow Rate 50 Fraction of Inspired Oxygen 35 02/15/25 18:30 02/15/25 18:30 02/15/25 19:00 Pulse Rate 83 Respiratory Rate 16 Blood Pressure 153/94 H 157/85 H Pulse Oximetry 96 Oxygen Delivery Method Oxygen Flow Rate Fraction of Inspired Oxygen 02/15/25 19:00 02/15/25 19:30 02/15/25 19:30 Pulse Rate 76 79 Respiratory Rate 21 23 Blood Pressure 138/66 Pulse Oximetry 97 97 Oxygen Delivery Method Oxygen Flow Rate Fraction of Inspired Oxygen 02/15/25 20:00 02/15/25 20:00 02/15/25 20:30 Pulse Rate 76 Respiratory Rate 23 Blood Pressure 143/72 H 153/84 H Pulse Oximetry 96 Oxygen Delivery Method Oxygen Flow Rate Fraction of Inspired Oxygen 02/15/25 20:30 02/15/25 20:49 02/15/25 21:00 Pulse Rate 80 83 Respiratory Rate 22 20 Blood Pressure 156/84 H Pulse Oximetry 98 98 Oxygen Delivery Method Oxygen Flow Rate Fraction of Inspired Oxygen 30 02/15/25 21:00 02/15/25 21:30 02/15/25 21:31 Pulse Rate 78 Respiratory Rate 22 Blood Pressure 161/82 H 142/92 H Pulse Oximetry 99 Oxygen Delivery Method Oxygen Flow Rate Fraction of Inspired Oxygen 02/15/25 21:31 02/15/25 22:00 02/15/25 22:00 Pulse Rate 79 82 Respiratory Rate 18 23 Blood Pressure 139/85 Pulse Oximetry 99 97 Oxygen Delivery Method Oxygen Flow Rate Fraction of Inspired Oxygen 02/15/25 22:29 02/15/25 22:30 Pulse Rate 88 Respiratory Rate 30 H Blood Pressure 150/95 H Pulse Oximetry 97 Oxygen Delivery Method BiPAP Oxygen Flow Rate Fraction of Inspired Oxygen MDM - Chest Pain <Neal Kramer MD - Last Filed: 02/15/25 18:44> Lab Data Lab results narrative: [place] [address], elevated D-dimer, venous blood gas shows normal pH with elevated CO2 suggesting compensation, proBNP and troponin are normal 02/15/25 15:14 02/15/25 15:14 Labs: Lab Results 11/15/25 11/15/25 11/15/25 Range/Units 15:14 15:36 17:45 WBC 12.0 H (4.5-11.0) X10^3/uL RBC 4.38 L (4.5-5.9) X10^6/uL Hgb 11.5 L (13.5-17.5) g/dL Hct 34.9 L (41-53) % MCV 79.6 L (80-100) fL MCH 26.1 (26-34) PG MCHC 32.8 (30-36) % RDW 17.5 H (11.6-14.8) % Plt Count 257 (150-400) X10^3/uL Neut % (Auto) 87.5 H (50-75) % Lymph % (Auto) 5.4 L (25-40) % [place] % (Auto) 5.2 (3-14) % Eos % (Auto) 1.3 L (2-4) % Baso % (Auto) 0.6 (0-2) % Neut # (Auto) 78158 H (4009-9531) /uL Lymph # (Auto) 600 L (2577-0331) /uL [place] # (Auto) 600 (0-900) /uL Eos # (Auto) 200 (0-450) /uL Baso # (Auto) 100 (0-100) /uL D-Dimer 1140 H (<500) ng/ml ABG Sample Site ABG pH (7.35-7.45) ABG pCO2 (35-45) mmHg ABG pO2 (80-100) mmHg ABG HCO3 (23-27) mmol/L ABG Total CO2 (23-27) mmol/L ABG O2 Saturation (95-100) % ABG Base Excess (-2-3) mmol/L Lv Test VBG pH 7.40 7.36 (7.33-7.43) VBG pCO2 56.8 H 62.0 H (45-50) mmHg VBG pO2 91 H 62 H (35-45) mmHg VBG HCO3 35 H 35 H (24-28) mmol/L VBG Total CO2 33 H 34 H (24-29) mmol/L VBG O2 Saturation 97 H 89 H (70-75) % VBG Base Excess 8.1 H 7.5 H (0-4) mmol/L O2 Delivery Device FiO2 % 36.0 % 32.0 % % Pressure Support PEEP or CPAP Sodium 141 (137-145) mmol/L Potassium 4.5 (3.4-5.1) mmol/L Chloride 103 (98-107) mmol/L Carbon Dioxide 31 (22-32) mmol/L BUN 21 H (9-20) mg/dL Creatinine 1.24 (0.66-1.25) mg/dL Estimated GFR > 60 (>60) mL/min BUN/Creatinine Ratio 16.9 (6-22) Glucose 165 H (70-99) mg/dL Calcium 9.1 (8.4-10.2) mg/dL Total Bilirubin 0.5 (0.2-1.3) mg/dL AST 58 (17-59) IU/L ALT 66 H (<50) IU/L Alkaline Phosphatase 354 H (38-126) U/L Troponin I < 0.012 (0.01-0.034) ng/mL NT-Pro-B Natriuret Pep 45 (<125) pg/mL Total Protein 7.4 (6.3-8.2) g/dL Albumin 4.1 (3.5-5.0) g/dL Globulin 3.3 (1.7-4.1) g/dL Albumin/Globulin Ratio 1.2 (1.0-2.8) Procalcitonin 0.193 (<0.5) ng/mL 02/15/25 02/15/25 Range/Units 21:38 23:04 WBC (4.5-11.0) X10^3/uL RBC (4.5-5.9) X10^6/uL Hgb (13.5-17.5) g/dL Hct (41-53) % MCV (80-100) fL MCH (26-34) PG MCHC (30-36) % RDW (11.6-14.8) % Plt Count (150-400) X10^3/uL Neut % (Auto) (50-75) % Lymph % (Auto) (25-40) % [place] % (Auto) (3-14) % Eos % (Auto) (2-4) % Baso % (Auto) (0-2) % Neut # (Auto) (9851-9695) /uL Lymph # (Auto) (9578-3437) /uL [place] # (Auto) (0-900) /uL Eos # (Auto) (0-450) /uL Baso # (Auto) (0-100) /uL D-Dimer (<500) ng/ml ABG Sample Site Right radial ABG pH 7.38 (7.35-7.45) ABG pCO2 62.2 H* (35-45) mmHg ABG pO2 94 (80-100) mmHg ABG HCO3 37 H (23-27) mmol/L ABG Total CO2 35 H (23-27) mmol/L ABG O2 Saturation 97 (95-100) % ABG Base Excess 9.2 H (-2-3) mmol/L Lv Test Positive VBG pH 7.47 H (7.33-7.43) VBG pCO2 49.2 (45-50) mmHg VBG pO2 34 L (35-45) mmHg VBG HCO3 36 H (24-28) mmol/L VBG Total CO2 34 H (24-29) mmol/L VBG O2 Saturation 69 L (70-75) % VBG Base Excess 10.2 H (0-4) mmol/L O2 Delivery Device Bipap FiO2 % 30 % 28.0 % % Pressure Support 16 PEEP or CPAP 8 Sodium (137-145) mmol/L Potassium (3.4-5.1) mmol/L Chloride (98-107) mmol/L Carbon Dioxide (22-32) mmol/L BUN (9-20) mg/dL Creatinine (0.66-1.25) mg/dL Estimated GFR (>60) mL/min BUN/Creatinine Ratio (6-22) Glucose (70-99) mg/dL Calcium (8.4-10.2) mg/dL Total Bilirubin (0.2-1.3) mg/dL AST (17-59) IU/L ALT (<50) IU/L Alkaline Phosphatase (38-126) U/L Troponin I (0.01-0.034) ng/mL NT-Pro-B Natriuret Pep (<125) pg/mL Total Protein (6.3-8.2) g/dL Albumin (3.5-5.0) g/dL Globulin (1.7-4.1) g/dL Albumin/Globulin Ratio (1.0-2.8) Procalcitonin (<0.5) ng/mL ECG Data Attestation: I personally reviewed and interpreted this ECG as follows: (Sinus rhythm at [address] with PVCs. No acute ST-elevation. PVCs are monomorphic.) <Clifford Rodgers MD - Last Filed: 02/15/25 23:51> Medical Records Data Attestation: I reviewed the patient's medical records. Medical records narrative: Records from [facility] and the patient's assisted living confirm what I have dictated on my initial notes and I have documented these in the chart under problems. This includes morbid obesity with BMI of 66, sarcoidosis, asthma, anxiety / depression, hypertension and obesity hypoventilation Lab Data Labs: Lab Results 02/15/25 02/15/25 02/15/25 Range/Units 15:14 15:36 17:45 WBC 12.0 H (4.5-11.0) X10^3/uL RBC 4.38 L (4.5-5.9) X10^6/uL Hgb 11.5 L (13.5-17.5) g/dL Hct 34.9 L (41-53) % MCV 79.6 L (80-100) fL MCH 26.1 (26-34) PG MCHC 32.8 (30-36) % RDW 17.5 H (11.6-14.8) % Plt Count 257 (150-400) X10^3/uL Neut % (Auto) 87.5 H (50-75) % Lymph % (Auto) 5.4 L (25-40) % [place] % (Auto) 5.2 (3-14) % Eos % (Auto) 1.3 L (2-4) % Baso % (Auto) 0.6 (0-2) % Neut # (Auto) 28967 H (5939-0420) /uL Lymph # (Auto) 600 L (9426-5944) /uL [place] # (Auto) 600 (0-900) /uL Eos # (Auto) 200 (0-450) /uL Baso # (Auto) 100 (0-100) /uL D-Dimer 1140 H (<500) ng/ml ABG Sample Site ABG pH (7.35-7.45) ABG pCO2 (35-45) mmHg ABG pO2 (80-100) mmHg ABG HCO3 (23-27) mmol/L ABG Total CO2 (23-27) mmol/L ABG O2 Saturation (95-100) % ABG Base Excess (-2-3) mmol/L Lv Test VBG pH 7.40 7.36 (7.33-7.43) VBG pCO2 56.8 H 62.0 H (45-50) mmHg VBG pO2 91 H 62 H (35-45) mmHg VBG HCO3 35 H 35 H (24-28) mmol/L VBG Total CO2 33 H 34 H (24-29) mmol/L VBG O2 Saturation 97 H 89 H (70-75) % VBG Base Excess 8.1 H 7.5 H (0-4) mmol/L O2 Delivery Device FiO2 % 36.0 % 32.0 % % Pressure Support PEEP or CPAP Sodium 141 (137-145) mmol/L Potassium 4.5 (3.4-5.1) mmol/L Chloride 103 (98-107) mmol/L Carbon Dioxide 31 (22-32) mmol/L BUN 21 H (9-20) mg/dL Creatinine 1.24 (0.66-1.25) mg/dL Estimated GFR > 60 (>60) mL/min BUN/Creatinine Ratio 16.9 (6-22) Glucose 165 H (70-99) mg/dL Calcium 9.1 (8.4-10.2) mg/dL Total Bilirubin 0.5 (0.2-1.3) mg/dL AST 58 (17-59) IU/L ALT 66 H (<50) IU/L Alkaline Phosphatase 354 H (38-126) U/L Troponin I < 0.012 (0.01-0.034) ng/mL NT-Pro-B Natriuret Pep 45 (<125) pg/mL Total Protein 7.4 (6.3-8.2) g/dL Albumin 4.1 (3.5-5.0) g/dL Globulin 3.3 (1.7-4.1) g/dL Albumin/Globulin Ratio 1.2 (1.0-2.8) Procalcitonin 0.193 (<0.5) ng/mL 02/15/25 02/15/25 Range/Units 21:38 23:04 WBC (4.5-11.0) X10^3/uL RBC (4.5-5.9) X10^6/uL Hgb (13.5-17.5) g/dL Hct (41-53) % MCV (80-100) fL MCH (26-34) PG MCHC (30-36) % RDW (11.6-14.8) % Plt Count (150-400) X10^3/uL Neut % (Auto) (50-75) % Lymph % (Auto) (25-40) % [place] % (Auto) (3-14) % Eos % (Auto) (2-4) % Baso % (Auto) (0-2) % Neut # (Auto) (8015-7656) /uL Lymph # (Auto) (2802-8120) /uL [place] # (Auto) (0-900) /uL Eos # (Auto) (0-450) /uL Baso # (Auto) (0-100) /uL D-Dimer (<500) ng/ml ABG Sample Site Right radial ABG pH 7.38 (7.35-7.45) ABG pCO2 62.2 H* (35-45) mmHg ABG pO2 94 (80-100) mmHg ABG HCO3 37 H (23-27) mmol/L ABG Total CO2 35 H (23-27) mmol/L ABG O2 Saturation 97 (95-100) % ABG Base Excess 9.2 H (-2-3) mmol/L Lv Test Positive VBG pH 7.47 H (7.33-7.43) VBG pCO2 49.2 (45-50) mmHg VBG pO2 34 L (35-45) mmHg VBG HCO3 36 H (24-28) mmol/L VBG Total CO2 34 H (24-29) mmol/L VBG O2 Saturation 69 L (70-75) % VBG Base Excess 10.2 H (0-4) mmol/L O2 Delivery Device Bipap FiO2 % 30 % 28.0 % % Pressure Support 16 PEEP or CPAP 8 Sodium (137-145) mmol/L Potassium (3.4-5.1) mmol/L Chloride (98-107) mmol/L Carbon Dioxide (22-32) mmol/L BUN (9-20) mg/dL Creatinine (0.66-1.25) mg/dL Estimated GFR (>60) mL/min BUN/Creatinine Ratio (6-22) Glucose (70-99) mg/dL Calcium (8.4-10.2) mg/dL Total Bilirubin (0.2-1.3) mg/dL AST (17-59) IU/L ALT (<50) IU/L Alkaline Phosphatase (38-126) U/L Troponin I (0.01-0.034) ng/mL NT-Pro-B Natriuret Pep (<125) pg/mL Total Protein (6.3-8.2) g/dL Albumin (3.5-5.0) g/dL Globulin (1.7-4.1) g/dL Albumin/Globulin Ratio (1.0-2.8) Procalcitonin (<0.5) ng/mL Imaging Data Chest x-ray: My Impression: cardiomegaly and congestion. MDM Narrative Medical decision making narrative: 18:00 patient care transferred to me at the change of shift by Dr. Kramer. Please see his notes and [facility] documentation for management and decision-making from 1500 to this point (18:00) prior to my assuming care of the patient. 20:00 39-year-old male patient with a history of super morbid obesity, sarcoidosis, chronic generalized weakness, anxiety / depression and hypertension who lives at assisted living and was brought in for worsening shortness breath over 1 week, worse on exertion. No chest pain, fever cough. He tried increasing his furosemide with no improvement. To this point he has had lab work revealing WBCs 12.0 with mild anemia at otherwise unremarkable. CMP unremarkable other than alk phos 354 which is similar to previous. D-dimer 1140. BNP 45. portable AP chest x-ray reveals cardiomegaly with interstitial prominence concerning for pulmonary edema. The BG at 3:36 p.m. reveals pH 7.40 with pCO2 56.8. 2 hours later pH 7.36 with pCO2 62.0. Patient has been on high-flow oxygen of 50 L and 35%. I discussed the patient with RT and we decided to change him to BiPAP instead of high flow and then recheck his ABG. He will also receive 80 mg IV furosemide to see if that helps at all with his breathing. I do believe he has a component of obesity hypoventilation causing some of his CO2 retention. However I do believe he is also a chronic retainer given the fact that his bicarb on chemistry is unremarkable. 21:00 I discussed the patient's care with Dr. Barry, hospitalist regarding further management and interventions. He feels the patient probably does need a CTA chest to rule out pulmonary embolism and recommends transfer, probably back to [facility] where the patient was hospitalized last month. 21:10 ABG after being on BiPAP reveals pH 7.38 and pCO2 62.2. Plan at this point will be to decrease his FiO2 to 35%, since he is having 100% oxygen saturations at this amount. We have a call into [facility] for transfer 22:15 patient's mental status has improved on BiPAP. He is less lethargic. We have reached out to [facility] for transfer (21:10) and they have yet to call back. Patient has acute exacerbation of chronic respiratory problems which are multifactorial including sarcoidosis, asthma, CHF and obesity hypoventilation. He has had a positive D-dimer and is at risk for pulmonary embolism and therefore needs a CTA to assess that which we can not perform here. He is improving on BiPAP. We are trying to find a facility where he can obtain CTA 22:45 I discussed the patient's care with Dr. Nichols, hospitalist at [facility] who felt the D-dimer in this patient would probably always be elevated with his sarcoidosis and other problems and he suggests we check his oxygenation status on his home levels of oxygen to see if there is any other reason that he might need a CTA for pulmonary embolism. He did have a CTA when he was seen there which was negative. 23:10 Patient's VBG after being upright on nasal cannula at 4 L reveals a pH of 7.47 with pCO2 49.2. My interpretation of all of this is that the D-dimer does not reflect pulmonary embolism but probably a chronic condition or sarcoidosis as mentioned by the hospitalist at [facility]. Patient has improved with diuresis and he does much better when he is upright so he does need a sleep study for possible sleep apnea. He also has an element of hypoventilation due to his morbid obesity which may explain the retained carbon dioxide. Patient feels much better and would like to go home. He is back to his baseline on even less than his usual 6 L of oxygen. I do not believe he needs admission or transfer further workup. He needs to continue with his home oxygen and other treatments along with diuresis which he has at home. Follow up closely with his primary care physician within the next 3 days. Return to the ER if worse. I do believe he needs to talk to his doctor about a sleep study. Obviously needs to work on weight loss. Discharge Plan Departure Patient Disposition: Home Clinical Impression: Dyspnea on exertion, Congestive heart failure Instructions: Heart Failure, DI for Shortness of Breath Activity Restrictions/Additional Instructions: plan: Continue current medications including furosemide. May need to take it twice a day. Follow up closely with your provider within 3 days for reassessment. Return to the ER if worse. Prescriptions: No Action prednisone 10 mg tablet 20 mg PO DAILY nifedipine 30 mg tablet extended release 24hr 30 mg PO DAILY sertraline 100 mg tablet 200 mg PO DAILY metoprolol tartrate 25 mg tablet 25 mg PO BID pantoprazole 40 mg tablet,delayed release (DR/EC) 40 mg PO DAILY furosemide 40 mg tablet 40 mg PO DAILY Dulera Inhalation Aerosol 2 inh inhalation BID Rx Instructions: Dulera Inhalation 100-5 mcg/act 2 puffs inhale orally; fluticasone propion-salmeterol 500-50 mcg/dose blister with device 1 inh INHALATION BID Patient Comments: [NO ORIGINAL SIG] azathioprine 50 mg tablet 50 mg PO DAILY sulfamethoxazole-trimethoprim 800-160 mg tablet 1 tab PO DAILY Rx Instructions: every Mon, Wed, Fri acetaminophen 325 mg capsule 650 mg PO Q4H PRN (Reason: pain) Stand Alone Forms: Patient Portal/API
[2025-02-15 15:21] LABS: Add Manual Diff / Slide Review NO; Hematocrit 34.9 % (41-53); Hemoglobin 11.5 g/dL (13.5-17.5); Lymphocytes Absolute Auto 600 /uL (1100-4500); Mean Corpuscular HGB Conc 32.8 % (30-36); Mean Corpuscular Hemoglobin 26.1 PG (26-34); Mean Corpuscular Volume 79.6 fL (80-100); Platelet Count 257 X10^3/uL (150-400)
--- NOTE | 2025-02-15 15:21 | EKG_ITS ---
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
[2025-02-15 15:34] LABS: Alanine Aminotransferase 66 IU/L (<50); Albumin 4.1 g/dL (3.5-5.0); Albumin Globulin Ratio 1.2 (1.0-2.8); Alkaline Phosphatase 354 U/L (38-126); Blood Urea Nitrogen 21 mg/dL (9-20); Calcium 9.1 mg/dL (8.4-10.2); Carbon Dioxide 31 mmol/L (22-32); Chloride 103 mmol/L (98-107); Estimated Glomerular Filt Rate > 60 mL/min (>60); Globulin 3.3 g/dL (1.7-4.1); Glucose 165 mg/dL (70-99); HEMOLYSIS < 15 (0-50); Potassium 4.5 mmol/L (3.4-5.1); Sodium 141 mmol/L (137-145); Total Protein 7.4 g/dL (6.3-8.2)
[2025-02-15 15:41] LABS: Base Excess VBG 8.1 mmol/L (0-4); HCO3 VBG 35 mmol/L (24-28); Oxygen Saturation VBG 97 % (70-75); PCO2 VBG 56.8 mmHg (45-50); PO2 VBG 91 mmHg (35-45); Total CO2 VBG 33 mmol/L (24-29); pH VBG 7.40 (7.33-7.43)
[2025-02-15 15:43] LABS: NT-proBNP (BNP-Adult 18+) 45 pg/mL (<125)
[2025-02-15 15:46] LABS: Troponin I < 0.012 ng/mL (0.01-0.034)
[2025-02-15 17:49] LABS: Base Excess VBG 7.5 mmol/L (0-4); HCO3 VBG 35 mmol/L (24-28); Oxygen Saturation VBG 89 % (70-75); PCO2 VBG 62.0 mmHg (45-50); PO2 VBG 62 mmHg (35-45); Total CO2 VBG 34 mmol/L (24-29); pH VBG 7.36 (7.33-7.43)
--- NOTE | 2025-02-15 20:44 | PC.NURSE ---
pt lying on stretcher, with HOB elevated pt is lethargic but arouses to his name, resp are 26 and shallow, [place] in place
--- NOTE | 2025-02-15 20:50 | PC.NURSE ---
discussed plan of care with Dr Reid and Alcides, RT
[2025-02-15] MEDS: FUROSEMIDE 40 MG/4 ML VIAL IV ×2 (20:57)
[2025-02-15 21:42] LABS: Allen Test for ABG Passed? Positive; Blood Gas Collection Site Right Radial; Delivery System BiPAP; HCO3 ABG 37 mmol/L (23-27); Oxygen Saturation ABG 97 % (95-100); PCO2 ABG 62.2 mmHg (35-45); PEEP 8; PO2 ABG 94 mmHg (80-100); TCO2 ABG 35 mmol/L (23-27)
--- NOTE | 2025-02-15 22:00 | PC.NURSE ---
spoke with Andie at [facility] and updated her on plan of care for pt for possible transfer for upgrade in care
--- NOTE | 2025-02-15 22:23 | PC.NURSE ---
coude catheter placed with clear colorless urine returned, about 100 ml
--- NOTE | 2025-02-15 22:24 | PC.NURSE ---
pt continues resting with eyes closed resp shallow, arouses to name upon arousing pt asks for food and then dozes off
[2025-02-15 23:09] LABS: Base Excess VBG 10.2 mmol/L (0-4); HCO3 VBG 36 mmol/L (24-28); Oxygen Saturation VBG 69 % (70-75); PCO2 VBG 49.2 mmHg (45-50); PO2 VBG 34 mmHg (35-45); Total CO2 VBG 34 mmol/L (24-29); pH VBG 7.47 (7.33-7.43)
[2025-02-15 23:13] LABS: Procalcitonin 0.193 ng/mL (<0.5)
--- NOTE | 2025-02-15 23:16 | PC.NURSE ---
pt aao x 3, on Nasal cannula, pt watching entertainment on his phone, can talk in complete sentences, ate food that was given, updated pt on plan of care, pt states he would prefer to go home if possible, [facility] called and updated on plan
--- NOTE | 2025-02-15 23:30 | PC.NURSE ---
called [facility] to inform them of change in plan of care and possible d/c from hospital and transfer back to [facility] d/t improved condition and diuresis
[2025-02-16] VITALS: PULSE 92; RESP 23; O2SAT 95
[2025-02-16 00:01] VITALS: BP 110/77; PULSE 94; RESP 42; O2SAT 96
[2025-02-16 00:30] VITALS: BP 116/74; PULSE 93; RESP 24; O2SAT 92
--- NOTE | 2025-02-16 00:34 | PC.NURSE ---
[facility] notified of pt returning
[2025-02-16 01:00] VITALS: PULSE 98; RESP 31; O2SAT 96
[2025-02-16 01:30] VITALS: PULSE 87; RESP 20; O2SAT 96
[2025-02-16 01:53] VITALS: BP 115/64
== END 2025-02-16 02:10 | disposition home or self-care (01) ==
PROVIDERS: Emergency Medicine; Emergency Provider Emergency Medicine
DX: R06.00 Dyspnea, unspecified (principal); I50.9 Heart failure, unspecified; E66.01 Morbid (severe) obesity due to excess calories; Z68.44 Body mass index [BMI] 60.0-69.9, adult
CPT/HCPCS: 36415; 36600; 71045; 80053; 82805; 83880; 84145; 84484; 85025; 85379; 93005; 94660; 96374; 99285; J1938

== ENCOUNTER → 2025-02-24 12:35 | Outpatient (ROUT) | payer OTHER, SELFPAY ==
[2025-02-15 20:49] VITALS: PULSE 80; RESP 17; O2SAT 96
[2025-02-24 12:49] LABS: Add Manual Diff / Slide Review NO; Hematocrit 35.6 % (41-53); Hemoglobin 11.5 g/dL (13.5-17.5); Lymphocytes Absolute Auto 700 /uL (1100-4500); Mean Corpuscular HGB Conc 32.4 % (30-36); Mean Corpuscular Hemoglobin 26.2 PG (26-34); Mean Corpuscular Volume 80.8 fL (80-100); Platelet Count 281 X10^3/uL (150-400)
[2025-02-24 13:03] LABS: Alanine Aminotransferase 59 IU/L (<50); Albumin 4.1 g/dL (3.5-5.0); Albumin Globulin Ratio 1.2 (1.0-2.8); Alkaline Phosphatase 362 U/L (38-126); Blood Urea Nitrogen 16 mg/dL (9-20); Calcium 8.6 mg/dL (8.4-10.2); Carbon Dioxide 30 mmol/L (22-32); Chloride 101 mmol/L (98-107); Estimated Glomerular Filt Rate > 60 mL/min (>60); Globulin 3.3 g/dL (1.7-4.1); Glucose 202 mg/dL (70-99); HEMOLYSIS 22 (0-50); Potassium 4.1 mmol/L (3.4-5.1); Sodium 139 mmol/L (137-145); Total Protein 7.4 g/dL (6.3-8.2)
[2025-02-24 20:19] LABS: Thyroid Stimulating Hormone 2.14 uIU/mL (0.47-4.68)
== END ==
DX: N18.9 Chronic kidney disease, unspecified (principal)
CPT/HCPCS: 80053; 84443; 85025

== ENCOUNTER → 2025-03-19 09:45 | Outpatient (ROUT) | payer OTHER, SELFPAY ==
[2025-02-15 20:49] VITALS: PULSE 80; RESP 17; O2SAT 96
[2025-03-19 10:15] LABS: Hematocrit 34.5 % (41-53); Hemoglobin 11.2 g/dL (13.5-17.5); Mean Corpuscular HGB Conc 32.6 % (30-36); Mean Corpuscular Hemoglobin 26.0 PG (26-34); Mean Corpuscular Volume 79.8 fL (80-100); Platelet Count 262 X10^3/uL (150-400)
[2025-03-19 10:31] LABS: Blood Urea Nitrogen 17 mg/dL (9-20); Calcium 8.5 mg/dL (8.4-10.2); Carbon Dioxide 30 mmol/L (22-32); Chloride 101 mmol/L (98-107); Estimated Glomerular Filt Rate > 60 mL/min (>60); Glucose 168 mg/dL (70-99); HEMOLYSIS 15 (0-50); Magnesium 1.5 mg/dL (1.6-2.3); Potassium 3.4 mmol/L (3.4-5.1); Sodium 139 mmol/L (137-145)
== END ==
LOC: LAB 09:47
PROVIDERS: Visit Provider Registered Nurse
DX: E88.9 Metabolic disorder, unspecified (principal); E61.2 Magnesium deficiency
CPT/HCPCS: 36415; 80048; 83735; 85027